=== PATIENT | male | born 1950 | race Caucasian/White ===

== ENCOUNTER 2018-01-06 08:25 | Emergency (ER) | payer BC, MEDICARE, OTHER ==
--- OUTSIDE RECORDS SUMMARY | 2018-01-06 08:35 | XMS REPORT ---
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 Deborah Martinez NP Primary Care Physician Unavailable Payers Type Date Identification Numbers Payment Provider Subscriber Health Maintenance Policy Number: [facility] [employer] Organization (HMO) [id number] PayID: [id number] [address] [place] [address] Problems Description No Information Social History Description No Information Available Allergies, Adverse Reactions, Alerts Description No Information Medications Description No Information Results Test Date Test Result H/L Range Note Laboratory test finding 01/04/2017 Alt 14 U/L 3-42 1 Ast 11 U/L 8-42 1, 2 Chol/ HDL Ratio 5.2 ratio 4.0-6.7 1, 3 Cholesterol 219 mg/dL High 50-199 1 HDL 42 mg/dL 29-71 1 LDL (Calc) 151 mg/dL High 20-99 1 Triglycerides 131 mg/dL 30-200 1 VLDL 26 mg/dL 2-29 1 Basic (BMP) 01/04/2017 Lina Egfr 59 1 Low >60 1 Anion Gap 11 mmol/L 7-16 1 BUN 37 mg/dL High 6-26 1 Calcium 9.8 mg/dL 8.5-10.2 1 Carbon Dioxide 19 mmol/L Low 24-34 1 Chloride# 110 mmol/L 97-110 1 Creatinine 1.4 mg/dL 0.5-1.4 1, 4 Glucose 92 mg/dL 70-105 1, 5 Non Lina Egfr 49 1 Low >60 1 Potassium 4.4 mmol/L 3.5-5.2 1, 6 Sodium 140 mmol/L 135-146 1 1 10 yr risk 17.9 2 Per NCEP ATP III Guidelines: Normal Population <130 Patients with medical conditions: CHD/DM Optimal: <100 Borderline high: 130-159 High: 160-189 Very high: >189 3 Per NCEP ATP III Guidelines: Results lower than 40 mg/dL are suggestive of increased risk for coronary artery disease. Results > or=to 60 mg/dL are considered a negative risk factor. 4 Extremely short draw 5 Updated reference range on new analyzer -2016 6 Updated reference range on new analyzer Procedures Description No Information Plan of Care Future Appointment(s):12/17/2017 1:00 pm - Jos Nagel MD at [facility]12/17/2017 - Jos Nagel MDZ12.11 Encounter for screening for malignant neoplasm of colon
--- OUTSIDE RECORDS SUMMARY | 2018-01-06 08:35 | XMS REPORT ---
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 Deborah Martinez NP Primary Care Physician Unavailable Payers Type Date Identification Numbers Payment Provider Subscriber Health Maintenance Policy Number: [facility] [employer] Organization (HMO) [id number] PayID: [id number] [address] [place] [address] Problems Description No Information Social History Description [...] 5 Updated reference range on new analyzer 6 Updated reference range on new analyzer Procedures Description No Information Plan of Care Future Appointment(s):12/17/2017 1:00 pm - Jos Nagel MD at [facility]12/17/2017 - Jos Nagel MDZ12.11 Encounter for screening for malignant neoplasm of colon
[2018-01-06 08:44] VITALS: BP 104/54
--- NOTE | 2018-01-06 10:15 | UC ---
Lower Extremity/Ankle HPI - HPI Summary HPI Summary: Pt presents with sudden onset of right great toe pain. Pt has HX of gout and is concerned that he is having "another episode". No hx of recent trauma or injury - History of Current Complaint Chief Complaint: UCLowerExtremity Stated Complaint: RT GREAT TOE CONCERN Time Seen by Provider: 01/06/18 10:06 Hx Obtained From: Patient Onset/Duration: Sudden Onset, Still Present Severity Initially: Mild Severity Currently: Mild Pain Intensity: 1 Aggravating Factor(s): Standing, Ambulation Alleviating Factor(s): Rest Able to Bear Weight: Yes - but c/o pain - Risk Factors Gout Risk Factors: Age Over 40, Male DVT Risk Factors: Negative Septic Arthritis Risk Factor: Negative - Allergies/Home Medications Allergies/Adverse Reactions: Allergies Allergy/AdvReac Type Severity Reaction Status Date / Time fish oil Allergy Shortness Verified 01/06/18 08:49 of Breath SHAGGY NUTS. BRAZIL NUTS Allergy Intermediate Shortness Uncoded 01/06/18 08:49 of Breath Home Medications: Home Medications Ibuprofen TAB* [Motrin TAB* 800 MG] 800 mg PO ONCE PRN 01/06/18 [History Confirmed 01/06/18] PMH/Surg Hx/FS Hx/Imm Hx Previously Healthy: Yes Endocrine History: Dyslipidemia Cardiovascular History: Cardiac Disease - Surgical History Surgical History: Yes Surgery Procedure, Year, and Place: radical prostatectomy - Family History Known Family History: Positive: Cardiac Disease - Social History Occupation: Retired Lives: With Family Alcohol Use: None Substance Use Type: None Smoking Status (MU): Former Smoker Type: Cigars Have You Smoked in the Last Year: No When Did the Patient Quit Smoking/Using Tobacco: 2006 - Immunization History Most Recent Influenza Vaccination: FALL 2013 Review of Systems Constitutional: Negative Skin: Negative, Other - mild erythema right great toe Eyes: Negative ENT: Negative Respiratory: Shortness Of Breath Cardiovascular: Negative Gastrointestinal: Negative Genitourinary: Negative Motor: Decreased ROM - pain with ROM right great toe Neurovascular: Negative Musculoskeletal: Arthralgia, Edema Neurological: Negative Psychological: Negative Is Patient Immunocompromised?: No All Other Systems Reviewed And Are Negative: Yes Physical Exam Triage Information Reviewed: Yes Appearance: Well-Appearing Vital Signs: Initial Vital Signs Temp 98.6 F 01/06/18 08:38 Pulse 55 01/06/18 08:38 Resp 18 01/06/18 08:38 BP 104/54 01/06/18 08:38 Pulse Ox 100 01/06/18 08:38 Vital Signs Reviewed: Yes Eye Exam: Normal ENT: Positive: Hearing grossly normal Dental Exam: Normal Neck exam: Normal Respiratory: Positive: No respiratory distress Musculoskeletal Exam: Other Musculoskeletal: Positive: Edema @ - right great toe, Neurological Exam: Normal Psychological Exam: Normal Skin Exam: Other - mild erythema Lower Extremity Course/Dx - Differential Dx/Diagnosis Differential Diagnosis/HQI/PQRI: Gout, Sprain Provider Diagnoses: right great toe gout Discharge - Sign-Out/Discharge Documenting (check all that apply): Patient Departure - Discharge Plan Condition: Stable Disposition: HOME Prescriptions: Colchicine* [Colcrys*] 0.6 mg PO DAILY #3 tab Patient Education Materials: Low Purine Diet (ED), Gout (ED) Referrals: Deborah Martinez [Primary Care Provider] - If Needed - Billing Disposition and Condition Condition: STABLE Disposition: Home
== END 2018-01-06 10:26 | disposition home or self-care (01) ==
LOC: UCCORT 08:25
DX: M10.9 Gout, unspecified (principal); Z87.891 Personal history of nicotine dependence
CPT/HCPCS: 99212; G0463

== ENCOUNTER 2018-03-16 13:21 | Emergency (ER) | payer BC, OTHER ==
[2018-03-16 14:16] VITALS: BP 150/82
--- NOTE | 2018-03-16 14:44 | UC ---
General HPI - HPI Summary HPI Summary: Patient presents for "possible gout". He states that he noted some "tightness" in his right foot on Wednesday. Yesterday he noted some redness and swelling in the area of the base of his second right toe. Today the second through fifth toes at the bases and the adjacent foot have become red and swollen. He notes the area is painful. He denies any associated injury as well as fever and chills. Has no other arthralgia. - History of Current Complaint Chief Complaint: UCLowerExtremity Stated Complaint: RIGHT FOOT COMPLAINT Time Seen by Provider: 03/16/18 14:24 Hx Obtained From: Patient Onset/Duration: Gradual Onset Timing: Constant Pain Intensity: 6 Alleviating: walking Associated Signs & Symptoms: Negative: Fever - Allergy/Home Medications Allergies/Adverse Reactions: Allergies Allergy/AdvReac Type Severity Reaction Status Date / Time fish oil Allergy Shortness Verified 01/06/18 08:49 of Breath SHAGGY NUTS. BRAZIL NUTS Allergy Intermediate Shortness Uncoded 01/06/18 08:49 of Breath PMH/Surg Hx/FS Hx/Imm Hx - Additional Past Medical History Additional PMH: gout, bradycardia Endocrine History: Dyslipidemia - Surgical History Surgical History: Yes Surgery Procedure, Year, and Place: radical prostatectomy - Family History Known Family History: Positive: Cardiac Disease - Social History Occupation: Employed Full-time Lives: With Family Alcohol Use: None Substance Use Type: None Smoking Status (MU): Former Smoker Type: Cigars Have You Smoked in the Last Year: No When Did the Patient Quit Smoking/Using Tobacco: 2006 - Immunization History Most Recent Influenza Vaccination: FALL 2013 Vaccination Up to Date: Yes Review of Systems Constitutional: Negative Skin: Negative Eyes: Negative ENT: Negative Respiratory: Negative Cardiovascular: Negative Gastrointestinal: Negative Genitourinary: Negative Motor: Negative Neurovascular: Negative Musculoskeletal: Other: - pain/swelling R foot Neurological: Negative Psychological: Negative Is Patient Immunocompromised?: No All Other Systems Reviewed And Are Negative: Yes Physical Exam Triage Information Reviewed: Yes Appearance: Well-Appearing Vital Signs: Initial Vital Signs Temp 97.7 F 03/16/18 14:10 Pulse 62 03/16/18 14:10 Resp 22 03/16/18 14:10 BP 150/82 03/16/18 14:10 Pulse Ox 98 03/16/18 14:10 Vital Signs Reviewed: Yes Eyes: Positive: Conjunctiva Clear ENT: Positive: Normal ENT inspection Neck: Positive: Supple, Nontender, No Lymphadenopathy Respiratory: Positive: Lungs clear, Normal breath sounds Cardiovascular: Positive: RRR, No Murmur Abdomen Description: Positive: Nontender, No Organomegaly, Soft Bowel Sounds: Positive: Present, Other: - No inguinal adenopathy Musculoskeletal: Positive: Other: - BLE's= mild swelling from the knees down with pitting which the patient describes as chronic and unchanged. Right dorsal foot adjacent to the second through fifth toes has mild erythema, warmth and tenderness. The foot has gross sensorivascular motor function. The rest of the right lower extremity is unremarkable. Neurological: Positive: Alert Psychological: Positive: Age Appropriate Behavior Skin Exam: Normal Diagnostics - Radiology No standard instances Radiology Interpretation Completed By: Radiologist - #. Nonspecific soft tissue swelling over the dorsum of the foot. No radiographic evidence for gout arthropathy. Course/Dx - Course Course Of Treatment: acute inflammation R foot, cellulitis vs gout. will tx for both with close f/u. - Differential Dx - Multi-Symptom Provider Diagnoses: Acute inflammation R foot, gout vs cellulitis Discharge - Sign-Out/Discharge Documenting (check all that apply): Patient Departure All imaging exams completed and their final reports reviewed: Yes - Discharge Plan Condition: Stable Disposition: HOME Prescriptions: Cephalexin CAP* [Keflex CAP*] 500 mg PO TID #21 cap Naproxen [Naprosyn 500 mg tab] 500 mg PO BID 5 Days #10 tablet Patient Education Materials: Gout (ED), Cellulitis (DC) Referrals: Deborah Martinez [Primary Care Provider] - 2 Days Additional Instructions: DIAGNOSIS: ACUTE INFLAMMATION RIGHT FOOT, GOUT VS CELLULITIS - Billing Disposition and Condition Condition: STABLE Disposition: Home
--- NOTE | 2018-03-16 15:03 | RAD ---
Indication: 2 days RIGHT foot pain and swelling. History of gout. Comparison: No relevant prior exams available on the [facility] PACS for comparison. Technique: AP, lateral, and oblique views RIGHT foot. Report: Normal articular alignment. Negative for fracture. No osseous erosions or periarticular calcifications evident. Preserved joint spaces. Normal variant bipartite lateral sesamoid at the first metatarsal phalangeal joint. Moderate plantar fascia origin bone spur. Soft tissue swelling over the dorsum of the foot. IMPRESSION: #. Nonspecific soft tissue swelling over the dorsum of the foot. No radiographic evidence for gout arthropathy.
== END 2018-03-16 15:21 | disposition home or self-care (01) ==
LOC: UCCORT 13:21
DX: L08.9 Local infection of the skin and subcutaneous tissue, unspecified (principal); Z87.891 Personal history of nicotine dependence
CPT/HCPCS: 99212; G0463

== ENCOUNTER 2019-08-13 15:14 | Emergency (ER) | payer BC ==
--- OUTSIDE RECORDS SUMMARY | 2019-08-13 15:41 | XMS REPORT | Continuity of Care Document ---
:1950 External Reference #:[id number] Author Name Sukumar Valenzuela M.D. Address 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 Onset: 08/17/2016 Combined form of senile cataract Sukumar Valenzuela M.D. Onset: 08/17/2016 Open-angle glaucoma - borderline Sukumar Valenzuela M.D. Onset: 08/17/2016 Presbyopia Jose Lora O.D. Onset: 08/30/2015 Regular astigmatism Jose Lora O.D. Onset: 08/30/2015 Myopia Jose Lora O.D. Onset: 08/30/2015 Incipient senile cataract Jose Lora O.D. Onset: 08/30/2015 Open-angle glaucoma - borderline Jose Lora O.D. Onset: 08/30/2015 Social History Type Date Description Comments Sex Unknown ETOH Use Rarely consumes alcohol Tobacco Use Start: Unknown End: Unknown Patient is a former smoker Smoking Status Reviewed: 06/16/19 Patient is a former smoker Allergies, Adverse Reactions, Alerts Active Allergies Reaction Severity Comments Date NKDA 08/30/2015 Fish 08/30/2015 Nuts 08/30/2015 Medications Active Medications SIG Qnty Indications Ordering Provider Date Lipitor Unknown 40mg Tablets Aspir-81 once per day by Unknown 81mg Tablets DR mouth Cialis prn Unknown 10mg Tablets Cephalexin Unknown 500mg Capsules Naproxen Unknown 500mg Tablets Chlorthalidone Unknown 25mg Tablets Immunizations Description No Information Available Vital Signs Date Vital Result Comment 06/16/2019 1:45pm Intraocular Pressure Right Eye 16 mmHg Intraocular Pressure Left Eye 15 mmHg 05/20/2018 2:28pm Intraocular Pressure Right Eye 15 mmHg Intraocular Pressure Left Eye 15 mmHg Cornea Thickness Left Eye 532 m Cornea Thickness Right Eye 527 m Pachymetry adjusted IOP Right Eye +1 Pachymetry adjusted IOP Left Eye +1 Results Description No Information Available Procedures Date Code Description Status 06/16/2019 44539 Fundus Photography W/Interpretation & Report Completed 06/16/2019 07570 Ophthalmoscopy Subsequent Completed 06/16/2019 99831 Eye Exam Est Comprehensive Completed Medical Devices Description No Information Available Encounters Description No Information Available Assessments Date Code Description Provider 06/16/2019 H40.013 Open angle with borderline findings, low Sukumar Valenzuela M.D. risk, bilateral 06/16/2019 H25.813 Combined forms of age-related cataract, Sukumar Valenzuela M.D. bilateral 06/16/2019 H43.813 Vitreous degeneration, bilateral Sukumar Valenzuela M.D. Plan of Treatment 06/16/2019 - Sukumar Valenzuela M.D.H40.013 Open angle with borderline findings, low risk, [id number] Combined forms of age-related cataract, [id number] Vitreous degeneration, bilateralFollow up:6mos vf oct Functional Status Description No Information Available Mental Status Description No Information Available Referrals Description No Information Available
[2019-08-13 15:42] VITALS: BP 156/80
--- NOTE | 2019-08-13 15:56 | UC ---
General HPI - HPI Summary HPI Summary: States he also has a runny nose. Past week it seems to have gotten worse. He does not feel sick, just constantly sneezing with a runny nose. Over the past 24 hours the congestion is worse. No fever. Minimal cough. No SOB. Just can' t breath through his nose. NO headache or sinus tenderness. Has a history of hayfever Meds; Reviewed - History of Current Complaint Chief Complaint: UCRespiratory Stated Complaint: CONGESTED Time Seen by Provider: 08/13/19 15:44 Pain Intensity: 0 - Allergy/Home Medications Allergies/Adverse Reactions: Allergies Allergy/AdvReac Type Severity Reaction Status Date / Time fish oil Allergy Shortness Verified 08/13/19 15:43 of Breath SHAGGY NUTS. BRAZIL NUTS Allergy Intermediate Shortness Uncoded 08/13/19 15:43 of Breath Home Medications: Home Medications Aspirin [Aspir 81] 81 mg PO DAILY 01/08/13 [History Confirmed 08/13/19] Atorvastatin Calcium [Lipitor] 10 mg PO DAILY 01/08/13 [History Confirmed ] Naproxen [Naprosyn 500 mg tab] 500 mg PO BID 5 Days #10 tablet 03/16/18 [Rx Confirmed 08/13/19] Albuterol HFA INHALER* [Ventolin HFA Inhaler*] 2 puff INH Q4H PRN #1 mdi [Rx] Spacer/Holding Chamber (NF) [Easivent CHAMBER (NF)] 1 applic INH Q4HR #1 device 08/13/19 [Rx] PMH/Surg Hx/FS Hx/Imm Hx Previously Healthy: Yes - Surgical History Surgical History: Yes Surgery Procedure, Year, and Place: radical prostatectomy - Family History Known Family History: Positive: Cardiac Disease - Social History Alcohol Use: Occasionally Substance Use Type: None Smoking Status (MU): Former Smoker Type: Cigars Have You Smoked in the Last Year: No When Did the Patient Quit Smoking/Using Tobacco: 2006 - Immunization History Most Recent Influenza Vaccination: FALL 2013 Vaccination Up to Date: Yes Review of Systems All Other Systems Reviewed And Are Negative: Yes ENT: Positive: Nasal Discharge, Sinus Congestion Physical Exam Triage Information Reviewed: Yes Appearance: Well-Appearing Vital Signs: Initial Vital Signs Temp 97.9 F 08/13/19 15:40 Pulse 57 08/13/19 15:40 Resp 18 08/13/19 15:40 BP 156/80 08/13/19 15:40 Pulse Ox 100 08/13/19 15:40 Eyes: Positive: Conjunctiva Clear ENT: Positive: Pharyngeal erythema, Nasal congestion, Other - turbs erythematous and edematous Neck: Positive: Supple, Nontender Respiratory: Positive: Normal breath sounds, Other: - faint expiratory wheeze b/ l. Good aeration otherwise clear Cardiovascular: Positive: RRR, No Murmur Course/Dx - Course Course Of Treatment: This is a 69 yr old with nasal congestion Discussed no indication for antibiotics Plan Recommend starting zyrtec 5 mg daily for sinus congestion Start nasal spray flonase 1-2 puffs in each nostril daily Also recommend saline rinse as discussed Trial of the albuterol inhaler 2 puffs every 4 hours as needed for cough - use with spacer If symptoms persist or worsen, despite above treatment recommend follow up with PCP or return to urgent care. Consider allergy testing if symptoms continue - Diagnoses Provider Diagnosis: Seasonal allergies Discharge ED - Sign-Out/Discharge Documenting (check all that apply): Patient Departure All imaging exams completed and their final reports reviewed: No Studies - Discharge Plan Condition: Good Disposition: HOME Prescriptions: Albuterol HFA INHALER* [Ventolin HFA Inhaler*] 2 puff INH Q4H PRN #1 mdi PRN Reason: Cough Spacer/Holding Chamber (NF) [Easivent CHAMBER (NF)] 1 applic INH Q4HR #1 device Patient Education Materials: Allergies (ED) Referrals: Deborah Martinez [Primary Care Provider] - Additional Instructions: Recommend starting zyrtec 5 mg daily for sinus congestion Start nasal spray flonase 1-2 puffs in each nostril daily Also recommend saline rinse as discussed Trial of the albuterol inhaler 2 puffs every 4 hours as needed for cough - use with spacer If symptoms persist or worsen, despite above treatment recommend follow up with PCP or return to urgent care. Consider allergy testing if symptoms continue - Billing Disposition and Condition Condition: GOOD Disposition: Home
== END 2019-08-13 15:57 | disposition home or self-care (01) ==
LOC: UCEAST 15:14
DX: J30.2 Other seasonal allergic rhinitis (principal); J39.2 Other diseases of pharynx; R09.81 Nasal congestion; Z79.82 Long term (current) use of aspirin; Z87.891 Personal history of nicotine dependence; Z91.013 Allergy to seafood; Z91.018 Allergy to other foods
CPT/HCPCS: 99212; G0463

== ENCOUNTER 2023-12-16 15:20 | Observation (INO) ==
[2023-12-16 17:03] LABS: Albumin/Globulin Ratio 1.7 (1-3); Calcium 10.2 mg/dL (8.6-10.3); Creatinine, Serum 1.95 mg/dL (0.67-1.17); Globulin 2.3 g/dL (2-4); Potassium 4.4 mmol/L (3.5-5.0); Total Bilirubin 0.4 mg/dL (0.2-1.0); Total Protein 6.3 g/dL (6.4-8.9); eGFR CKD-EPI 35.4 (>60)
[2023-12-16 17:32] LABS: High Sensitivity Troponin 1 Hr 20 pg/mL (<20)
[2023-12-16 17:39] LABS: Activated Partial Thrombo Time 32.6 seconds (26.0-38.0); INR 1.15 (0.83-1.13)
[2023-12-16] MEDS: Iodixanol (CONTRAST) 320 MG/ML 100 ML SDV IV ONE (17:46)
[2023-12-16 18:05] LABS: ABS Basophils 0.1 10^3/uL (0.0-0.1); ABS Eosinophils 0.5 10^3/uL (0.0-0.5); ABS Lymphocytes 1.6 10^3/uL (1.0-4.8); ABS Monocytes 0.9 10^3/uL (0.0-1.1); ABS Neutrophils 7.2 10^3/uL (1.5-7.6); ABS Nucleated RBC 0.01 10^3/ul; Eosinophil % 5.1 %; Hematocrit 32.4 % (38-53); Hemoglobin 10.5 g/dL (13.2-16.3); Lymphocyte % 15.7 %; Mean Corpuscular Hemoglobin 26.5 pg (27-33); Mean Corpuscular Hgb Conc 32.4 g/dL (31-36); Mean Corpuscular Volume 81.8 fL (80-97); Mean Platelet Volume 8.2 fL (7.5-11.2); Nucleated Red Blood Cells % 0.1 %/100WBC (0.0-0.8); Platelet Count 315 10^3/uL (150-450); Red Blood Count 3.96 10^6/uL (4.06-5.63); Red Cell Distribution Width 17.2 % (12-17); White Blood Count 10.3 10^3/uL (3.6-10.2)
[2023-12-16] MEDS ORDERED: Al Hydrox/Mg Hydrox/Simet LIQ 30 ML UDC PO PRN (22:40)
[2023-12-17] MEDS: Furosemide 20 mg/2 ml IV VIAL IV SLOW PU ONE (00:38)
[2023-12-17] MEDS: Heparin 5000 UNITS/ML 1 mL VIAL SUBCUT SCH (05:56)
[2023-12-17] MEDS: Aspirin EC 81 mg TAB.EC (enteric coated) PO SCH (08:54)
[2023-12-17] MEDS: DAPAGLIFLOZIN 10 MG TAB (NF) PO SCH (08:54)
[2023-12-17] MEDS: Sulfur Hexaflouride MICROSPHR 25 MG VIAL IV ONE (09:04)
[2023-12-17 14:59] LABS: C Reactive Protein 32.01 mg/L (<8.01)
[2023-12-18 06:55] LABS: Calcium 9.3 mg/dL (8.6-10.3); Creatinine, Serum 1.99 mg/dL (0.67-1.17); Potassium 3.8 mmol/L (3.5-5.0); eGFR CKD-EPI 34.6 (>60)
[2023-12-18 14:39] VITALS: BP 112/54
== END 2023-12-18 15:27 | disposition home or self-care (01) ==
LOC: ED 15:20 → EDHOLD 15:20 → SUATTDRO 22:39 → MEDTELE 23:58
PROVIDERS: ADMIT Internal Medicine; ATTEND Student in an Organized Health Care Education/Training Program